=== PATIENT | female | born 1955 | race Caucasian/White ===

== ENCOUNTER 2016-09-12 20:22 | Emergency (ER) | payer OTHER | END 2016-09-12 22:07 | disposition home or self-care (01) | LOC: ER 20:22 | DX: T18.128A Food in esophagus causing other injury, initial encounter (principal); Z79.899 Other long term (current) drug therapy; Z88.0 Allergy status to penicillin | CPT/HCPCS: 96361; 96374; 99070; 99283; 99283-25 ==